=== PATIENT | male | born 1955 | race Two or more races ===

== ENCOUNTER 2024-11-05 09:14 | Emergency (ER) | payer OTHER ==
[~2024-11-05 09:14] MED LIST: ATORVASTATIN CA10 MG PO; CYCLOBENZAPRINE10 MG PO; LEVOTHYROXINE100 MCG PO; LOSARTAN POTASS50 MG PO
[2024-11-05] MEDS ORDERED: KETOROLAC TROMETHAMINE 30 MG VIAL IV ONE (11:45)
[2024-11-05] MEDS ORDERED: KETOROLAC TROMETHAMINE 30 MG VIAL ONE (12:12)
[2024-11-05 12:50] LABS: HEMATOCRIT 46.1 % (39.0-48.0); HEMOGLOBIN 15.2 g/dL (13-16.00); MEAN CELL VOLUME 89.3 fL (80.0-100.00); MEAN CORPUSCULAR HEMOGLOBIN 29.5 pg (27.00-32.0); PLATELET COUNT 265 K/uL (150-450); RED BLOOD COUNT 5.16 M/uL (4.00-6.00); RED CELL DISTRIBUTION WIDTH 14.1 % (11.5-14.5)
[2024-11-05 13:00] LABS: CREATININE SERUM 0.86 mg/dL (0.70-1.30); GFR 87.91; POTASSIUM 4.41 mEq/L (3.5-5.1)
[2024-11-05 14:25] LABS: PH,URINE 6.5 (5.0-8.0); URINE APPEARANCE Clear; URINE BILIRRUBIN Negative (NEGATIVE); URINE BLOOD Moderate; URINE COLOR Yellow; URINE GLUCOSE Negative (NEGATIVE); URINE KETONE Negative (NEGATIVE); URINE LEUKOCYTE Negative; URINE NITRATE Negative; URINE PROTEIN Trace (NEGATIVE); URINE UROBILINOGEN 0.2 E.U./dl
[2024-11-05 14:27] LABS: URINE BACTERIA 12.2 uL (0.0-1933); URINE RBC 289.3 uL (0.0-20.8); URINE WBC 38.6 uL (0.0-23.2)
[2024-11-05 14:30] LABS: URINE CAST 0.29 uL (0.0-1.40); URINE EPITHELIAL CELLS 1.2 uL (0.0-38.8)
== END 2024-11-05 15:18 | disposition home or self-care (01) ==
LOC: ER 09:15
PROVIDERS: Emergency Medicine
DX: N23 Unspecified renal colic (principal)
CPT/HCPCS: 36415; 74176; 96365; 99284; J1885